=== PATIENT | male | born 1970 | race Caucasian/White ===

== ENCOUNTER 2023-02-08 14:25 | Emergency (ER) | payer BC, MEDICAID, SELFPAY ==
[2023-02-08 14:26] VITALS: BP 180/96; PULSE 76; RESP 14; TEMP 36.6; O2SAT 98; BMI 43.5
--- NOTE | 2023-02-08 15:31 | EKG12_ITS ---
Test Reason : SOB/DIZZY Blood Pressure : / mmHG Vent. Rate : 076 BPM Atrial Rate : 076 BPM P-R Int : 178 ms QRS Dur : 118 ms QT Int : 378 ms P-R-T Axes : 021 -56 058 degrees QTc Int : 425 ms Normal sinus rhythm Left anterior fascicular block Abnormal ECG Confirmed by KEI OSMAN, CESAR ([id number]), brands editor JULIO ROLLINS ([id number]) on 02/09/2023 10:54:40 AM Referred By: EMILY Confirmed By:CESAR CHOUDHURY MD
--- NOTE | 2023-02-08 15:32 | EX.ED.DYSGE1 ---
HPI History of Present Illness Chief Complaint: Dizziness Narrative Narrative: 52-year-old male presenting with lightheadedness. He states he had this about a week ago when he was at work. 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 He states that usually hot and he does sweat a lot. He reports that he drinks a lot of water. Today he has had lightheadedness from about 1030 this morning. Its been intermittent. He does not have any vertiginous dizziness. He denies chest pain but states he had a little bit of shortness of breath today. No fever or chills. No cough. Patient has history of hypertension, hyperlipidemia, diabetes. He said no medication changes. [facility] Medical History Diabetes mellitus type 2 in obese Gout History of left heart catheterization HLD (hyperlipidemia) HTN (hypertension) Home Medications allopurinol 100 mg tablet 300 mg PO DAILYCM 03/13/14 [History Last Taken Unknown] amlodipine 10 mg tablet 10 mg PO DAILY 02/08/23 [History Last Taken Unknown] atorvastatin 20 mg tablet 20 mg PO DAILY 02/08/23 [History Last Taken Unknown] glimepiride 4 mg tablet 4 - 6 mg PO PRN PRN Hyperglycemia 02/08/23 [History Last Taken Unknown] lisinopril 40 mg tablet 40 mg PO DAILY 02/08/23 [History Last Taken Unknown] meclizine 25 mg chewable tablet 25 mg PO TID PRN dizziness #30 tabs 02/08/23 [Rx Last Taken Unknown] metformin 1,000 mg tablet 1,000 mg PO BID 02/08/23 [History Last Taken Unknown] Allergy/AdvReac Type Severity Reaction Status Date / Time azithromycin [From Zithromax] Allergy Unknown Verified 02/08/23 14:28 erythromycin base Allergy Unknown Verified 02/08/23 14:28 [Erythromycin Base] Sulfa (Sulfonamide Allergy Unknown Verified 02/08/23 14:28 Antibiotics) Social History Smoking Status: Current some day smoker tobacco type: cigarettes ROS ROS ED Constitutional Constitutional ED: Denies chills or fever(s) Eyes Eyes: Denies change in vision or diplopia ENT ENT ED: Denies rhinorrhea or sore throat Cardiovascular Cardiovascular: Reports other Details: Lightheadedness ; Denies chest pain Respiratory/Chest Respiratory/Chest: Reports dyspnea; Denies cough Gastrointestinal Gastrointestinal: Denies abdominal pain, nausea or vomiting Genitourinary Genitourinary ED: Denies dysuria or hematuria Musculoskeletal Musculoskeletal: Denies arthralgias or back pain Integumentary Denies abscess or Abrasions Neurologic Neurologic: Denies headache(s) or paresthesias EXAM Physical Exam Const Vital Signs: 02/08/23 14:26 02/08/23 14:37 02/08/23 15:44 Temperature 97.9 F Temperature Source Temporal Pulse Rate 76 Pulse Rate [Lying] Pulse Rate [Sitting (for 1 minute prior to obtaining)] Pulse Rate [Standing (for 1 minute prior to obtaining)] Respiratory Rate 14 Respiratory Effort Short of Breath Respiratory Pattern Normal Blood Pressure 180/96 H Blood Pressure [Lying] Blood Pressure [Sitting (for 1 minute prior to obtaining)] Blood Pressure [Standing (for 1 minute prior to obtaining)] Blood Pressure Mean 124 Blood Pressure Mean [Lying] Blood Pressure Mean [Sitting (for 1 minute prior to obtaining)] Blood Pressure Mean [Standing (for 1 minute prior to obtaining)] Pulse Ox 98 Oxygen Delivery Method Room Air Room Air Oxygen Flow Rate (L/min) 96 02/08/23 17:34 02/08/23 17:34 Temperature Temperature Source Pulse Rate 65 Pulse Rate [Lying] 65 Pulse Rate [Sitting (for 1 minute prior to obtaining)] 72 Pulse Rate [Standing (for 1 minute prior to obtaining)] 71 Respiratory Rate 16 Respiratory Effort Respiratory Pattern Blood Pressure 143/69 H Blood Pressure [Lying] 143/69 H Blood Pressure [Sitting (for 1 minute prior to obtaining)] 168/89 H Blood Pressure [Standing (for 1 minute prior to obtaining)] 160/80 H Blood Pressure Mean 93 Blood Pressure Mean [Lying] 93 Blood Pressure Mean [Sitting (for 1 minute prior to obtaining)] 115 Blood Pressure Mean [Standing (for 1 minute prior to obtaining)] 106 Pulse Ox 97 Oxygen Delivery Method Room Air Oxygen Flow Rate (L/min) Positive well nourished General Appearance ED: NAD; Negative for pallor HEENT Reports moist mucous membranes Eyes PERRL and EOMs intact bilaterally General Eye ED: Negative for pale conjunctiva or scleral icterus Chest Wall inspection of chest normal and palpation of chest normal Resp normal respiratory effort and clear to auscultation bilaterally Auscultation: Negative for rales, rhonchi or wheezes Cardio regular rate and regular rhythm Extremity normal to inspection Neuro oriented x3 and CN's II-XII intact bilaterally Sensorium / Orientation: alert Psych mental status grossly normal Skin no rashes or lesions noted General Skin Exam: Negative for jaundice or pallor MDM MDM MDM Narrative Medical decision making narrative: Patient presented with lightheadedness. He is not having any chest pain. Differential at this point would include dehydration, electrode abnormalities, dysrhythmia. 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 He states he thinks he drinks plenty of fluids. CBC to assess white blood cell count, hemoglobin, platelets, differential. BMP to assess renal function, electrolytes, glucose, anion gap. Chest x-ray, EKG, high-sensitivity troponins checked for cardiac source. Orthostatic vital signs will be obtained. CBC shows a normal white blood cell count at 9.6. Hemoglobin hematocrit are stable. Platelets are normal. Renal function electrolytes within normal limits. High-sensitivity opponent is 5. EKG on my interpretation shows normal sinus rhythm with a ventricular rate of 76 bpm without sign of ischemic change or dysrhythmia. Chest x-ray my interpretation shows no acute process. Radiologist services and agrees. Orthostatic vital signs are negative. Patient still has not had a repeat of the symptoms since he has been here. Patient requested a prescription for meclizine has a history of vertigo. He states he wants to try this just in case. Patient counseled on return precautions. Follow-up with his PCP to ensure resolution. Impression: 1. Lightheadedness Lab Data Labs: Laboratory Results - last 24 hr 02/08/23 02/08/23 14:45 14:45 WBC 9.6 RBC 5.30 Hgb 15.5 Hct 45.5 MCV 85.8 MCH 29.2 MCHC 34.1 RDW Std Deviation 40.7 RDW Coeff of Ayde 13.2 Plt Count 120 L MPV 12.6 H Immature Gran % (Auto) 0.500 Neut % (Auto) 64.6 Lymph % (Auto) 22.1 [place] % (Auto) 7.8 Eos % (Auto) 4.5 Baso % (Auto) 0.5 Absolute Neuts (auto) 6.2 Absolute Lymphs (auto) 2.11 Nucleated RBC % 0 Sodium 139 Potassium 3.8 Chloride 103 Carbon Dioxide 29.0 Anion Gap 7 BUN 15 Creatinine 0.84 Estim Creat Clear Calc 118.90 Est GFR (MDRD) Af Amer 124 Est GFR (MDRD) Non-Af 103 BUN/Creatinine Ratio 17.9 Glucose 220 H Calcium 9.1 Troponin I High Sens 5 Radiography Diagnostic Testing: Clinical Impression(s) from Imaging Studies Chest X-Ray 02/08/23 15:35 IMPRESSION: No radiographic evidence of acute cardiopulmonary disease. Electronically Signed: Jose Downs MD at 16:10 EDT , Discharge Plan Triage Chief Complaint: Dizziness ED Provider: Emigdio Dodd Dx/Rx/DC Orders Instructions: ED Dizziness, Uncertain Cause Prescriptions: New meclizine 25 mg tablet,chewable 25 mg PO TID PRN (Reason: dizziness) Qty: 30 0RF No Action allopurinol 100 MG tablet 300 mg PO DAILYCM Label Comments: gout atorvastatin 20 mg tablet 20 mg PO DAILY Label Comments: take 1 tablet by mouth daily at bedtime amlodipine 10 mg tablet 10 mg PO DAILY metformin 1,000 mg tablet 1,000 mg PO BID glimepiride 4 mg tablet 4 - 6 mg PO PRN PRN (Reason: Hyperglycemia) Label Comments: take 1 and 1/2 tablet by mouth daily with breakfast lisinopril 40 mg tablet 40 mg PO DAILY Primary Care Provider: Narendra Bhandari Referrals: Narendra Bhandari MD [Primary Care Provider] - Disposition Disposition: Home, Self Care Discharge Date/Time: 02/08/23 18:03
--- NOTE | 2023-02-08 15:35 | RAD_ITS ---
INDICATION: Shortness of breath, chest pain EXAMINATION/TECHNIQUE: X-RAY - XR Chest 1 View COMPARISON: None. FINDINGS: LUNGS: No consolidation, edema or effusion. No pneumothorax. MEDIASTINUM AND CARDIOVASCULAR STRUCTURES: Cardiac silhouette not enlarged. Central airways and mediastinal contour are unremarkable. RAD/Chest 1 View (Portable) IMPRESSION: No radiographic evidence of acute cardiopulmonary disease. Electronically Signed: Jose Downs MD at 16:10 EDT ,
[2023-02-08 16:07] LABS: Absolute Lymphocyte Count 2.11 X10^3/uL (0.83-4.51); Absolute Neutrophil Count 6.2 X10^3/uL (2.0-7.7); Basophil# 0.05 X10^3/uL; Basophil% 0.5 % (0-1); Eosinophil# 0.43 X10^3/uL; Eosinophils% 4.5 % (0-5); Hematocrit 45.5 % (40-54); Hemoglobin 15.5 g/dL (13.0-16.5); Lymphocyte # 2.11 X10^3/ul (0.83-4.51); Lymphocyte % 22.1 % (19-41); Mean Corp Hgb Conc 34.1 g/dL (32-36); Mean Corpuscular Hgb 29.2 pg (27.0-32.0); Mean Corpuscular Volume 85.8 fL (80-94); Mean Platelet Vol. 12.6 fl (6.2-12.0); Monocyte# 0.75 X10^3/uL; Monocyte% 7.8 % (0-10); NRBC Flagged by Analyzer 0 % (0-5); Neutrophil # 6.17 X10^3/uL (2.7-7.7); Neutrophil % 64.6 % (47-70); Platelet Count 120 K/mm3 (150-450); RBC Distribution Width CV 13.2 % (11.6-14.6); RBC Distribution Width SD 40.7 fl (35.1-43.9); White Blood Count 9.6 K/mm3 (4.4-11.0)
[2023-02-08 16:19] LABS: Anion Gap 7 (5-15); BUN 15 mg/dL (7-18); BUN/Creat Ratio 17.9 RATIO (10-20); Calcium,Total 9.1 mg/dL (8.5-10.1); Chloride 103 mmol/L (98-107); Creatinine, Serum 0.84 mg/dL (0.70-1.30); EST Glomerular Filtration Rate 103 mL/min (>60); Est Glom Filt Rate - Afr Amer 124 mL/min (>60); Glucose 220 mg/dL (74-106); Potassium 3.8 mmol/L (3.5-5.1); Sodium Level 139 mmol/L (136-145); Troponin-I HS 5 pg/mL (3.0-78.0)
[2023-02-08 17:34] VITALS: BP 143/69; BP 160/80; BP 168/89; PULSE 65; PULSE 71; PULSE 72; RESP 16; O2SAT 97
== END 2023-02-08 18:03 | disposition home or self-care (01) ==
PROVIDERS: Emergency Provider Student in an Organized Health Care Education/Training Program; PCP Family Medicine; Visit Provider Student in an Organized Health Care Education/Training Program
DX: R42 Dizziness and giddiness (principal); E11.9 Type 2 diabetes mellitus without complications; I10 Essential (primary) hypertension; F17.210 Nicotine dependence, cigarettes, uncomplicated; E78.5 Hyperlipidemia, unspecified; M10.9 Gout, unspecified; Z79.899 Other long term (current) drug therapy
CPT/HCPCS: 71045; 80048; 84484; 85025; 93005; 99285; A4216

== ENCOUNTER → 2023-03-07 | Outpatient (CLI) | payer BC, MEDICAID, SELFPAY ==
--- NOTE | 2023-03-07 06:46 | MRI_ITS ---
INDICATION: VERTIGO EXAMINATION: MRA - MRA Head W/O Contrast TECHNIQUE: Routine makah of [place]/brain 3D time of flight MR angiogram protocol was performed without gadolinium. 3D reconstructions were reviewed. IV Contrast Dosage and Agent: None. COMPARISON: None. FINDINGS: --Anterior Circulation: ICAs: No significant stenosis at the intracranial/visualized segments. ACAs: No significant stenosis at the visualized segments. ACOM: Not identified. MCAs: No significant stenosis at the visualized segments. --Posterior Circulation: PCOMs: Right P-comm is present. computer assembler: No significant stenosis at the visualized segments. BASILAR ARTERY: Partial fenestration. No significant stenosis. VERTEBRAL ARTERIES: No significant stenosis at the intradural/visualized segments. No evidence of intracranial aneurysm or vascular malformation. MRI/MRA Head ONLY without Contrast IMPRESSION: Partial fenestration of the basilar artery. No evidence of arterial stenosis, occlusion or aneurysm. Electronically Signed: Anam Purvis MD at 9:47 EDT ,
--- NOTE | 2023-03-07 06:46 | MRI_ITS ---
EXAM: MR HEAD WITHOUT INTRAVENOUS CONTRAST CLINICAL INDICATION: VERTIGO TECHNIQUE: Multiplanar and multisequence MR images of the brain were obtained without intravenous contrast. This report was created using [employer] report generation technology. COMPARISON: None. FINDINGS: BRAIN AND EXTRA-AXIAL SPACES: Normal. No intra- or extra-axial hemorrhage. No evidence of acute infarct. No intracranial mass or mass effect. There is preservation of the berman/white matter interface. Posterior fossa structures are unremarkable. Ventricles are appropriate for age. No hydrocephalus. Basal cisterns are patent. SELLA: Normal. Normal sella turcica, pituitary gland, infundibular stalk, optic chiasm and hypothalamus. AUDITORY SYSTEM: Normal. The internal auditory canals are patent. BONES/JOINTS: Intact calvarium. SINUSES: Unremarkable as visualized. Clear. MASTOID AIR CELLS: Unremarkable as visualized. Clear. ORBITS: Unremarkable as visualized. Both globes, extraocular muscles, optic nerves and retrobulbar fat appear unremarkable. VASCULATURE: Unremarkable as visualized. Normal flow voids in the major intracranial circulation. MRI/Brain without Contrast IMPRESSION: Normal MRI brain without intravenous contrast. Electronically Signed: Anam Purvis MD at 9:49 EDT ,
== END | disposition home or self-care (01) ==
PROVIDERS: PCP Family Medicine; Referring Provider Family Medicine; Visit Provider Family Medicine
DX: R42 Dizziness and giddiness (principal)
CPT/HCPCS: 70544; 70551